=== PATIENT | female | born 1985 | race Asian ===

== ENCOUNTER → 2017-05-03 | Outpatient (CLI) | payer OTHER ==
[~2017-05-03] MED LIST: ACET500 PO; ALBU90OI INH; CEPH500 PO; CYCL10 PO; IBUP800 PO; MEDR150I IM; NAPR500 PO; Naprosyn500 MG PO; Norco 5-325 Ta1 EACH PO; OXYACE5T PO; Percocet 5-3251 EACH PO; Ultram50 MG PO; Verotin-Gr Cap1 EACH PO; Zofran Odt8 MG SL
[2017-05-03 10:12] LABS: Specimen Source URINE
[2017-05-04 01:27] LABS: Source Urine
== END | disposition home or self-care (01) ==
LOC: LAB 09:51
PROVIDERS: Obstetrics & Gynecology
DX: Z11.3 Encounter for screening for infections with a predominantly sexual mode of transmission (principal)
CPT/HCPCS: 87491; 87591

== ENCOUNTER 2017-05-14 12:46 | Inpatient (IN) | payer OTHER ==
[~2017-05-14] VITALS: Ht 180.3 cm; Wt 147.0 kg
[~2017-05-14 12:46] MED LIST changes: -ACET500 PO; -ALBU90OI INH; -CEPH500 PO; -NAPR500 PO; -Percocet 5-3251 EACH PO
[2017-11-05] MEDS ORDERED: CEPH500 PO (12:54)
[2017-11-05] MEDS ORDERED: ACET500 PO (12:55)
[2017-11-05] MEDS ORDERED: Verotin-Gr Cap1 EACH PO (12:56)
[2017-11-05 13:15] LABS: BASOPHILS ABSOLUTE AUTO 0.07 K/mm3 (0.00-0.23); BASOPHILS PERCENT AUTO 1 % (0-2); EOSINOPHILS ABSOLUTE AUTO 0.23 K/mm3 (0.00-0.68); EOSINOPHILS PERCENT AUTO 2 % (0-6); Hematocrit 41.8 % (33.0-51.0); Hemoglobin 14.3 g/dL (11.5-16.0); IMMATURE GRAN ABSOLUTE AUTO 0.08 K/mm3 (0.00-0.10); IMMATURE GRAN PERCENT AUTO 1 % (0-1); LYMPHOCYTES ABSOLUTE AUTO 2.05 K/mm3 (0.84-5.20); LYMPHOCYTES PERCENT AUTO 17 % (21-46); MONOCYTES ABSOLUTE AUTO 0.77 K/mm3 (0.16-1.47); MONOCYTES PERCENT AUTO 7 % (4-13); Mean Corpuscular HGB 31.8 pg (26.0-34.0); Mean Corpuscular HGB Conc 34.2 g/dL (31.5-36.5); Mean Corpuscular Volume 93 fL (80-100); Mean Platelet Volume 10.6 fL (9.1-12.4); NEUTROPHILS ABSOLUTE AUTO 8.63 K/mm3 (1.96-9.15); NEUTROPHILS PERCENT AUTO 73 % (41-73); Platelet Count 250 K/mm3 (150-400); RDW Coefficient Variation 13.1 % (11.7-14.2); RDW Standard Deviation 44.4 fL (35.1-46.3); Red Blood Cell Count 4.49 M/mm3 (3.80-5.20); White Blood Cell Count 11.83 K/mm3 (4.00-11.30)
[2017-11-05] MEDS ORDERED: ALBU90OI INH (13:15)
[2017-11-07 05:36] LABS: Hematocrit 34.9 % (33.0-51.0); Hemoglobin 11.5 g/dL (11.5-16.0); Mean Corpuscular HGB 31.4 pg (26.0-34.0); Mean Corpuscular Volume 95 fL (80-100); Mean Platelet Volume 10.4 fL (9.1-12.4); Platelet Count 199 K/mm3 (150-400); RDW Coefficient Variation 13.4 % (11.7-14.2); RDW Standard Deviation 46.5 fL (35.1-46.3); Red Blood Cell Count 3.66 M/mm3 (3.80-5.20); White Blood Cell Count 14.47 K/mm3 (4.00-11.30)
[2017-11-07] MEDS ORDERED: NAPR500 PO (12:38)
[2017-11-07] MEDS ORDERED: Percocet 5-3251 EACH PO (12:38)
== END 2017-11-08 19:08 | disposition home or self-care (01) | DRG 766 ==
LOC: BC 11-06 07:25
PROVIDERS: Obstetrics & Gynecology
PROC: 10D00Z1 Extraction of Products of Conception, Low, Open Approach (ICD-10-PCS; principal; 2017-11-06 08:45)
PROC: 3E0234Z Introduction of Serum, Toxoid and Vaccine into Muscle, Percutaneous Approach (ICD-10-PCS; 2017-11-08)
DX: O34.211 Maternal care for low transverse scar from previous cesarean delivery (principal); Z3A.39 39 weeks gestation of pregnancy; Z37.0 Single live birth; O16.5 Unspecified maternal hypertension, complicating the puerperium; Z23 Encounter for immunization
CPT/HCPCS: 36415; 85025; 85027; 86850; 86900; 86901; 90707; 94760; J0690; J1885; J2370; J2405; J2590; J2765; J3010; J7120

== ENCOUNTER → 2017-10-14 | Outpatient (CLI) | payer OTHER | END | disposition home or self-care (01) | LOC: LAB 14:05 → LAB SHORT 14:05 | DX: Z34.80 Encounter for supervision of other normal pregnancy, unspecified trimester (principal) | CPT/HCPCS: 87081; 87653 ==